=== PATIENT | female | born 1935 | race Hispanic/Latino ===

== ENCOUNTER 2021-08-18 11:03 | Inpatient (IN) | payer MEDICARE ==
[~2021-08-18] VITALS: Ht 160 cm; Wt 40.8 kg
[2021-08-18] MEDS ORDERED: LOSARTAN (11:30)
[2021-08-18] MEDS ORDERED: METFORMIN HCL500 MG PO (11:30)
[2021-08-18] MEDS ORDERED: CRESTOR10 MG PO (11:30)
[2021-08-18] MEDS ORDERED: COREG6.25 MG PO (11:30)
[2021-08-18] MEDS ORDERED: MELOXICAM7.5 MG PO (11:30)
[2021-08-18] MEDS ORDERED: SODIUM CHLORIDE 0.9% 1000ML 500 ML IV ONE (12:45)
[2021-08-18 13:18] LABS: BASOPHILS % 0.3 % (0.0-1.0); HEMATOCRIT 46.8 % (34.2-44.1); HEMOGLOBIN 15.9 g/dL (12.0-16.0); LYMPHOCYTES # (AUTO) 0.5 (1.0-3.2); LYMPHOCYTES % 4.8 % (18.0-39.1); MEAN CORPUSCULAR HEMOGLOBIN 34.2 pg (28-32); MEAN CORPUSCULAR VOLUME 100.6 fL (81-99); MONOCYTES # (AUTO) 0.6 (0.2-0.8); MONOCYTES % 6.1 % (4.4-11.3); NEUTROPHILS # (AUTO) 8.5 (2.1-6.9); NEUTROPHILS % 88.4 % (38.7-80.0); PLATELET COUNT 185 x10e3/uL (140-360); RED BLOOD COUNT 4.65 x10e6/uL (3.6-5.1); RED CELL DISTRIBUTION WIDTH 13.3 % (11.7-14.4)
[2021-08-18 13:35] LABS: CLARITY,URINE CLOUDY (CLEAR); COLOR,URINE YELLOW (YELLOW); LEUKOCYTE ESTERASE ,URINE NEGATIVE (NEGATIVE); NITRITE,URINE NEGATIVE (NEGATIVE)
[2021-08-18 13:36] LABS: KETONES,URINE 2+ (NEGATIVE); PROTEIN,URINE DIPSTICK 2+ (NEGATIVE); URINE UROBILINOGEN 0.2 mg/dL (0.2 - 1)
[2021-08-18 13:37] LABS: ALBUMIN 3.7 g/dL (3.5-5.0); ALBUMIN/GLOBULIN RATIO 1.1 (0.8-2.0); ANION GAP 17.7 mmol/L (8-16); CALCIUM 10.4 mg/dL (8.4-10.2); CREATININE, SERUM 0.66 mg/dL (0.57-1.11); POTASSIUM 3.7 mmol/L (3.5-5.1)
[2021-08-18 13:43] LABS: BACTERIA,URINE MANY /HPF; EPITHELIAL CELLS,URINE FEW /LPF; MUCUS,URINE FEW (RARE); RBC,URINE 21-50 /HPF (0-5); TRANSITIONAL EPI CELLS,URINE FEW; WBC,URINE (MAN) 21-50 /HPF (0-5)
[2021-08-18] MEDS ORDERED: SODIUM CHLORIDE 0.9% 1000ML 1,000 ML IV SCH (14:30)
[2021-08-18 16:30] VITALS: BP 156/86
[2021-08-18 16:45] VITALS: BP 156/86
[2021-08-18] MEDS ORDERED: DEXTROSE 5%/0.45% SOD CHL 1,000 ML IV ONE (19:45)
[2021-08-18 20:00] VITALS: BP 148/65
[2021-08-18 21:00] VITALS: BP 148/65
[2021-08-19] VITALS (7 sets, daily range): BP systolic 125–142; BP diastolic 58–83
[2021-08-19 06:57] LABS: BASOPHILS % 0.7 % (0.0-1.0); EOSINOPHILS % 0.3 % (0.0-6.0); HEMATOCRIT 37.9 % (34.2-44.1); HEMOGLOBIN 14.2 g/dL (12.0-16.0); LYMPHOCYTES # (AUTO) 0.7 (1.0-3.2); LYMPHOCYTES % 11.4 % (18.0-39.1); MEAN CORPUSCULAR HEMOGLOBIN 40.2 pg (28-32); MEAN CORPUSCULAR HGB CONC 37.5 g/dL (31-35); MEAN CORPUSCULAR VOLUME 107.4 fL (81-99); MONOCYTES # (AUTO) 0.8 (0.2-0.8); MONOCYTES % 12.9 % (4.4-11.3); NEUTROPHILS # (AUTO) 4.3 (2.1-6.9); NEUTROPHILS % 74.4 % (38.7-80.0); PLATELET COUNT 126 x10e3/uL (140-360); RED BLOOD COUNT 3.53 x10e6/uL (3.6-5.1)
[2021-08-19 07:37] LABS: ANION GAP 18.5 mmol/L (8-16); CALCIUM 8.1 mg/dL (8.4-10.2); CREATININE, SERUM 0.6 mg/dL (0.57-1.11); POTASSIUM 3.5 mmol/L (3.5-5.1)
[2021-08-19] MEDS: SIMVASTATIN 20 MG TAB PO SCH (07:49)
[2021-08-19] MEDS: CARVEDILOL 3.125 MG TAB PO SCH ×2 (08:17→16:31)
[2021-08-19] MEDS ORDERED: KETOROLAC TROMETHAMINE 30 MG/ML VIAL IV PRN (09:30)
[2021-08-19 11:51] LABS: % IRON SATURATION 27 % (15-50); IRON 68 ug/dL (50-170); TOTAL IRON BINDING CAPACITY 255 ug/dL (261-478); TRANSFERRIN 182 mg/dL (180-382)
[2021-08-19] MEDS: DEXTROSE 5%/0.45% SOD CHL 1,000 ML IV SCH (18:07)
[2021-08-19] MEDS: KETOROLAC TROMETHAMINE 30 MG/ML VIAL IV PRN (19:43)
[2021-08-20] VITALS (8 sets, daily range): BP systolic 99–143; BP diastolic 39–56
[2021-08-20] MEDS: DEXTROSE 5%/0.45% SOD CHL 1,000 ML IV SCH (04:10)
[2021-08-20] MEDS: KETOROLAC TROMETHAMINE 30 MG/ML VIAL IV PRN ×2 (05:21→12:34)
[2021-08-20 07:25] LABS: ANION GAP 13.8 mmol/L (8-16); BLOOD UREA NITROGEN < 5 mg/dL (7-26); CARBON DIOXIDE 33 mmol/L (22-29); CHLORIDE 98 mmol/L (98-107); CREATININE, SERUM 0.56 mg/dL (0.57-1.11); GLUCOSE 167 mg/dL (74-118); SODIUM 142 mmol/L (136-145)
[2021-08-20 07:30] LABS: BUN/CREATININE RATIO 9 (6-25)
[2021-08-20 07:32] LABS: POTASSIUM 2.8 mmol/L (3.5-5.1)
[2021-08-20] MEDS ORDERED: POTASSIUM CHLORIDE 20 MEQ TAB CR PO STA (07:37)
[2021-08-20] MEDS: SIMVASTATIN 20 MG TAB PO SCH (09:02)
[2021-08-20] MEDS: CARVEDILOL 3.125 MG TAB PO SCH ×2 (09:02→17:29)
[2021-08-20] MEDS: D5.45%NS/KCL 20MEQ 1,000 ML IV SCH ×2 (09:12→20:00)
[2021-08-20] MEDS: LIDOCAINE 4% PATCH TP SCH (12:38)
[2021-08-20] MEDS ORDERED: ASPIRIN 81 MG CHEW TAB PO ONE (18:00)
[2021-08-20 18:38] LABS: CREATINE KINASE MB 1.6 ng/mL (0-5.0)
[2021-08-21] VITALS (8 sets, daily range): BP systolic 109–167; BP diastolic 43–69
[2021-08-21] MEDS: D5.45%NS/KCL 20MEQ 1,000 ML IV SCH ×2 (03:25→13:50)
[2021-08-21 06:02] LABS: BASOPHILS % 0.4 % (0.0-1.0); EOSINOPHILS # (AUTO) 0.1 (0.0-0.4); EOSINOPHILS % 0.7 % (0.0-6.0); HEMATOCRIT 42.4 % (34.2-44.1); HEMOGLOBIN 14.2 g/dL (12.0-16.0); LYMPHOCYTES # (AUTO) 0.6 (1.0-3.2); LYMPHOCYTES % 8.9 % (18.0-39.1); MEAN CORPUSCULAR HEMOGLOBIN 34.7 pg (28-32); MEAN CORPUSCULAR HGB CONC 33.5 g/dL (31-35); MEAN CORPUSCULAR VOLUME 103.7 fL (81-99); MONOCYTES # (AUTO) 0.7 (0.2-0.8); MONOCYTES % 10.3 % (4.4-11.3); NEUTROPHILS # (AUTO) 5.4 (2.1-6.9); NEUTROPHILS % 79.1 % (38.7-80.0); PLATELET COUNT 140 x10e3/uL (140-360); RED BLOOD COUNT 4.09 x10e6/uL (3.6-5.1); RED CELL DISTRIBUTION WIDTH 12.8 % (11.7-14.4)
[2021-08-21 06:25] LABS: ALBUMIN 2.8 g/dL (3.5-5.0); ANION GAP 12.5 mmol/L (8-16); CREATININE, SERUM 0.51 mg/dL (0.57-1.11); MAGNESIUM 1.7 MG/DL (1.3-2.1); POTASSIUM 3.5 mmol/L (3.5-5.1)
[2021-08-21] MEDS ORDERED: LIDOCAINE 4% PATCH TP SCH (09:00)
[2021-08-21] MEDS: CARVEDILOL 3.125 MG TAB PO SCH ×2 (09:51→17:00)
[2021-08-21] MEDS: SIMVASTATIN 20 MG TAB PO SCH (09:51)
[2021-08-21 10:42] LABS: CHOL/HDL RATIO 2.7 (3.0-3.6)
[2021-08-21] MEDS: LIDOCAINE 4% PATCH TP SCH (13:00)
[2021-08-22] VITALS (8 sets, daily range): BP systolic 95–142; BP diastolic 42–68
[2021-08-22] MEDS: D5.45%NS/KCL 20MEQ 1,000 ML IV SCH ×3 (00:01→22:00)
[2021-08-22] MEDS: KETOROLAC TROMETHAMINE 30 MG/ML VIAL IV PRN (05:17)
[2021-08-22] MEDS ORDERED: METHYLPREDNISOLONE SOD SUCC 40 MG/ML VIAL 1ML IV ONE (06:00)
[2021-08-22] MEDS: CARVEDILOL 3.125 MG TAB PO SCH ×2 (09:00→17:00)
[2021-08-22] MEDS: ASPIRIN 81 MG ENTERIC COATED PO SCH (09:00)
[2021-08-22] MEDS: SIMVASTATIN 20 MG TAB PO SCH (09:00)
[2021-08-22] MEDS: CYANOCOBALAMIN INJ 1,000 MCG/ML VIAL IM SCH (09:44)
[2021-08-22] MEDS: LIDOCAINE 4% PATCH TP SCH (12:56)
[2021-08-22] MEDS ORDERED: ARTIFICIAL TEARS (OPTH) 15 ML BTL OD PRN (13:00)
[2021-08-23] VITALS: BP 151/59
[2021-08-23 04:00] VITALS: BP 113/46
[2021-08-23] MEDS: D5.45%NS/KCL 20MEQ 1,000 ML IV SCH (05:36)
[2021-08-23 06:31] VITALS: BP 151/59
[2021-08-23 07:42] VITALS: BP 85/42
[2021-08-23 08:00] VITALS: BP 84/42
[2021-08-23] MEDS: CYANOCOBALAMIN INJ 1,000 MCG/ML VIAL IM SCH (09:00)
[2021-08-23] MEDS: SIMVASTATIN 20 MG TAB PO SCH (09:00)
[2021-08-23] MEDS: ASPIRIN 81 MG ENTERIC COATED PO SCH (09:00)
[2021-08-23] MEDS: CARVEDILOL 3.125 MG TAB PO SCH (09:00)
[2021-08-23] MEDS: LIDOCAINE 4% PATCH TP SCH (13:00)
== END 2021-08-23 15:22 | disposition expired | DRG 871 ==
LOC: ER 11:51 → ERHOLD 14:25 → INTOOBSV 14:25 → MED/SURG3 16:26 → OBSVTOIN 08-20 11:39
PROVIDERS: ADMIT Internal Medicine; ATTEND Internal Medicine
DX: A41.9 Sepsis, unspecified organism (principal); G93.41 Metabolic encephalopathy; I21.9 Acute myocardial infarction, unspecified; N39.0 Urinary tract infection, site not specified; E44.0 Moderate protein-calorie malnutrition; Z68.1 Body mass index [BMI] 19.9 or less, adult; R64 Cachexia; R65.20 Severe sepsis without septic shock; R13.10 Dysphagia, unspecified; I25.10 Atherosclerotic heart disease of native coronary artery without angina pectoris; Z86.73 Personal history of transient ischemic attack (TIA), and cerebral infarction without residual deficits; Z66 Do not resuscitate; E11.9 Type 2 diabetes mellitus without complications; I25.2 Old myocardial infarction; Z20.822 Contact with and (suspected) exposure to COVID-19; Z95.1 Presence of aortocoronary bypass graft; D69.6 Thrombocytopenia, unspecified; F03.90 Unspecified dementia, unspecified severity, without behavioral disturbance, psychotic disturbance, mood disturbance, and anxiety; R29.6 Repeated falls; R62.7 Adult failure to thrive; Z79.84 Long term (current) use of oral hypoglycemic drugs; E87.6 Hypokalemia
CPT/HCPCS: 36415; 70450; 71045; 72125; 72170; 80048; 80053; 80061; 81001; 82550; 82553; 82948; 83540; 83735; 84443; 84466; 84484; 85025; 87086; 93005; 93306; 94799; 97139; 99251; 99284; G0378; J0696; J1885; J2543; J2920; J3420; J7030